=== PATIENT | male | born 1950 | race Caucasian/White ===

== ENCOUNTER 2016-09-29 20:32 | Emergency (ER) | payer MEDICARE, OTHER ==
[~2016-09-29] VITALS: Ht 175.3 cm; Wt 98.4 kg
[2016-09-29] MEDS ORDERED: ALBUTEROL-200 PUFFS/ IH (20:39)
[2016-09-29] MEDS ORDERED: SERTRALINE 50MG50 MG PO (20:39)
[2016-09-29] MEDS ORDERED: OMEPRAZOLE20 MG PO (20:39)
[2016-09-29] MEDS ORDERED: SYMBICORT1 AE1 IH (20:40)
[2016-09-29] MEDS ORDERED: CYMBALTA30 MG PO (20:40)
--- OUTSIDE RECORDS SUMMARY | 2016-09-29 20:44 | External Medical Summary Rpt ---
Author Author [employer] Organization [employer] Address Unknown Phone Unavailable Purpose Continuity of Care Document - through 2016
--- OUTSIDE RECORDS SUMMARY | 2016-09-29 20:44 | External Medical Summary Rpt ---
Demographics Preferred Language Tamazight Marital Status Unknown Adventism Affiliation Unknown Race Unknown Ethnic Group Unknown Author Author , Organization [employer] Address Unknown Phone Unavailable Purpose Continuity of Care Document - through 2016 Immunization No patient found.
--- OUTSIDE RECORDS SUMMARY | 2016-09-29 20:44 | External Medical Summary Rpt ---
Demographics Preferred Language Divehi Marital Status Unknown Sabianism Affiliation Unknown Race Unknown Ethnic Group Unknown Author Author , Organization [employer] Address Unknown Phone Unavailable Purpose Continuity of Care Document - through 2016 Immunization No patient found.
[2016-09-29 21:01] LABS: HEMOGLOBIN 15.4 g/dL (14.1-18.0); LYMPH # 1.9 K/mm3 (0.7-4.5); LYMPH % 13.9 % (10-50)
[2016-09-29 21:16] LABS: URINE BLOOD NEGATIVE (NEG)
[2016-09-29 21:18] LABS: URINE BILIRUBIN - DIPSTICK 1+ (NEG)
[2016-09-29 21:44] LABS: BUN 25 mg/dL (7-18)
[2016-09-29 21:50] LABS: GFR (ESTIMATED) 75 ML/MIN (>60)
[2016-09-29 21:57] LABS: URINE SQUAMOUS CELLS OCC #/hpf (OCC)
--- NOTE | 2016-09-29 22:10 | Emergency Room Report ---
History of Present Illness Time Seen by [id number] Presenting Problem in Triage Pt arrived:Walked Presenting Problem:PT STATES HE HAS HAD INDIGESTION AND VOMITING ALL DAY. PT STATES THAT HE HAS CHEST PAINS WHEN HE VOMITS. 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 N Clinical Suspician of Infection? N Mental Status: 1 - Regular (Normal Baseline) Sepsis Risk:Possible Sepsis Risk Have you (or family members/close friends) recently traveled outside the [place]? N If Yes, where/when: Have you had exposure to infectious disease within the past month? TB? Other? Specify: Source patient, RN notes reviewed, old records Exam Limitations no limitations Comment upper abd pain with burning pain with no melena and has had pain for many yrs with last egd at [facility] about a year ago - Cardiac Chest Pain Chest pain indicative of cardiac No Timing/Duration this evening Severity moderate ALLERGIES Coded Allergies: Sulfa (Sulfonamide Antibiotics) (09/29/16) Home Medications Reported Medications Sertraline Hcl (Sertraline 50MG) 25 MG PO BID Omeprazole (Omeprazole 20MG) 20 MG PO BID Albuterol (Albuterol-Hfa Inhaler) 1 PUFF IH PRN PRN . BUDESONIDE/FORMOTEROL FUMARATE (Symbicort 160-4.5 Mcg Inhaler) 1 PUFF IH BID DULOXETINE HCL (Cymbalta 30MG) 30 MG PO DAILY History Medical History General CAD? No Angina: No MS: No Hypertension? No Hyperlipidemia? No CHF? No DVT? No PE? No COPD? Yes Asthma? Yes Anemia? No GERD? Yes Gastric ulcers? No GI Bleed? No Hernia? No Thyroid Problems? No Hypothyroidism? No CVA? No Seizures? No Diabetes? No Renal Insuffiency? No End Stage Renal Disease? No UTI? No Stones? No BPH? No GB Disease: No Nephritic Syndrome? No Asplenia? No Hepatitis? No Sickle Cell Disease? No Arthritis? No Migraines? No Cataracts? No Glaucoma? No MRSA? No HIV? No TB? No Anxiety? Yes Depression? Yes Cancer? No More? No Immunization Hx DT/Tetanus Unknown Surgical Hx Previous Surgery?Y LUNG SURGERY Social History Smoking Hx Smoker: Current Every Day Smoker Tobacco: Yes Type Cigarettes Alcohol Alcohol: No Drugs none Review of Systems All Other Systems Reviewed and Negative Constitutional denies fever Eyes denies drainage ENT denies: ear discharge, epistaxis, throat pain. Respiratory denies cough, denies shortness of breath, denies wheezing Cardiovascular denies chest pain, denies syncope Gastrointestinal see HPI, abdominal pain, denies diarrhea, nausea, denies vomiting Genitourinary denies: dysuria, frequency, hesitancy, hematuria. Musculoskeletal denies back pain, denies joint pain, denies joint swelling, denies neck pain Skin denies rash Psychiatric/Neurological denies headache, denies seizure Physical Exam Vital Signs Vital Signs Date Time Temp Pulse Resp B/P Pulse O2 O2 Flow FiO2 Ox Delivery Rate 09/29 2226 86 20 146/90 96 3 09/29 2144 82 20 131/76 96 3 09/29 2034 98.0 96 20 144/88 95 3 - WBC >12,000 or <4,000 or 10% bands? 2 or more SIRS Criteria Met? B/P:146/90 MAP:106 Creatinine >2.0? UA output<0.5ml/kg/hr for 2 hrs? Platelet count >100,000? Lactate >2.0mmol/1? INR >1.2 or PTT > than 60 sec? Evidence of Organ Dysfunction? Provider documented clinical suspician of infection? N Sepsis Criteria Count: 2 Sepsis Risk: Possible Sepsis Risk General Appearance no apparent distress Eye Exam - bilateral eye PERRL, bilateral eye EOMI Ear, Nose, Throat normal ENT inspection Neck supple Respiratory Status No: respiratory distress. Lung Sounds bilateral: lungs clear. 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 No Results/Orders Laboratory Tests 09/29/161: Sodium 143, Potassium 3.7, Chloride 107, Carbon Dioxide 28, BUN 25 H, Creatinine 1.0, Estimated Creat Clear 100, Estimated GFR (MDRD) 75, Glucose 89, Calcium 8.5, Total Bilirubin 0.6, AST 15, ALT 21, Alkaline Phosphatase 81, Creatine Kinase 43, CK-MB (CK-2) Rel Index 1.9, CK and CKMB Interp 0.8, Troponin I < 0.02, Total Protein 7.1, Albumin 3.4, Globulin 3.7 H, Albumin/Globulin Ratio 0.9 L, Amylase 35, Lipase 74 09/29/162104: Urine Color YELLOW, Urine Appearance CLEAR, Urine pH 6.0, Ur Specific Inlet 1.025, Urine Protein TRACE H, Urine Ketones 2+ H, Urine Blood NEGATIVE, Urine Nitrate NEGATIVE, Urine Bilirubin 1+ H, Urine Urobilinogen 1.0, Ur Leukocyte Esterase NEGATIVE, Urine RBC 3-5, Urine WBC OCC, Ur Squamous Epith Cells OCC, Urine Bacteria 1+, Fine Granular Casts OCC, Urine Mucus 2+, Urine Glucose NEGATIVE 09/29/162042: WBC 13.7 H, RBC 5.63, Hgb 15.4, Hct 47.1, MCV 83.7, RDW 13.4, Plt Count 263, MPV 8.2, Gran % 74.7, Gran # 10.2 H, Lymphocytes % 13.9, Monocytes % 5.4, Eosinophils % 5.1, Basophils % 0.8, Lymphocytes # 1.9, Monocytes # 0.7, Eosinophils # 0.7 H, Basophils # 0.1, PUBS MCHC 32.8, MCH 27.4 Current Medication Orders Sig/Mike Start time Last Medication Dose Route Stop Time Status Admin Famotidine 0 .STK-MED ONE 09/29 2216 DC IV Metoclopramide HCl 0 .STK-MED ONE 09/29 2216 DC .ROUTE Famotidine 20 MG ONCE ONE 09/29 IV 09/29 Metoclopramide HCl 10 MG ONCE ONE 09/29 IVP 09/29 Sodium Chloride 8 ML ONCE ONE 09/29 IV 09/29 Ondansetron HCl 4 MG ONCE 09/29 IV 09/29 Sodium Chloride 10 ML PRN PRN 09/29 2044 AC IV 09/30 2040 Sodium Chloride 1,000 ML .Q1H1M 09/29 2044 DC 09/29 IV 09/29 Sodium Chloride 10 ML PRN PRN 09/29 2044 AC IV 09/30 2040 Multi-Ingredient GI 0 .STK-MED ONE 09/30 2043 DC Drug PO Sodium Chloride 1,000 ML .STK-MED ONE 09/30 2043 DC IV Ondansetron HCl 0 .STK-MED ONE 09/29 2042 DC .ROUTE Orders Procedure Date/time Status CHEST(2 VIEWS-NOT PORTABLE) 09/[address] ABD & PELVIS W/O CONTRAST 09/30 2043 Active ELECTROCARDIOGRAM REQUEST 09/[address] ABD/PELVIS REQ 09/29 2041 Complete IV SALINE LOCK 09/29 2041 Active URINALYSIS/COMPLETE 09/29 2041 Complete LIPASE 09/29 2041 Complete COMPLETE METABOLIC PANEL 09/29 2041 Complete CBC WITH AUTO DIFF 09/29 2041 Complete CARDIAC ENZYMES 09/29 2041 Complete AMYLASE 09/29 2041 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 ST/[facility] chgs XRAY/CT/US XRAY/CT/US 1 XRAY chest XR interpretation by reviewed by me Xray Results abnormal XRAY/CT/US 2 CT abdomen, pelvis CT interpretation by discussed w/radiologist Time results known: 2301 CT Results abnormal (see report) Progress ED Progress Notes Date 09/29/16 Time 2302 Comment improved after reglan Departure Departure Time of Disposition 2255 Disposition DC Home or Self Care(routine) Clinical Impression Primary Impression: Esophagitis Condition STABLE Referrals NO REFERRAL (Family) Patient Instructions DI for Esophagitis Additional Instructions see pcp for meds and more tests Discharge Counseling Counseled pt/family regarding diagnosis, test results, medications/RX, follow up needs ED Critical Care Critical Care No at 2303
[2016-09-29 23:09] VITALS: BP 134/80
--- NOTE | 2016-09-30 04:46 | RADIOLOGY REPORT PS360 ---
CHEST(2 VIEWS-NOT PORTABLE) HISTORY: Chest pain CP ORDERING PHYSICIAN: Shawna Ac MD PATIENT AGE: 66 years COMPARISON: None available FINDINGS: The heart size is unremarkable. There is prominence of the interstitium with scattered areas of lucency consistent with COPD/emphysema with interstitial fibrosis. Superimposed infiltrate could be present however, there are no prior studies available to compare. There is asymmetric right apical pleural thickening along with pleural thickening in the right lung base laterally. No acute bony anomalies are evident. The left hilum is prominent. There is 18 mm vague opacity in the right midlung. IMPRESSION: Abnormal chest x-ray as described above likely reflecting a combination of emphysema/COPD with pulmonary fibrosis. Cannot exclude underlying acute parenchymal pathology such as pneumonia or even neoplasm. Correlation with old studies needed. If no old films are available for comparison then, chest CT follow-up may provide better evaluation.
--- NOTE | 2016-09-30 10:00 | RADIOLOGY REPORT PS360 ---
CT ABD PELVIS W/O CONTRAST CLINICAL INDICATION: Nausea and vomiting NAUSEA ORDERING PHYSICIAN: Shawna Ac MD PATIENT AGE: 66 years COMPARISON: None TECHNIQUE: Axial images obtained with sagittal and coronal reformats. PROCEDURE: Oral Contrast: None IV Contrast: None . FINDINGS: Lower thorax: Bullous is edematous changes with pulmonary fibrosis. Pleural thickening with mild pleural calcification posteriorly on the right. Coronary artery calcification. Mild gynecomastia. Small hiatal hernia with mild thickening of the distal esophagus Abdomen/pelvis: Mild diffuse hepatic steatosis. Gallbladder slightly distended. No radio opaque gallstones or biliary dilatation. The spleen, adrenal glands, and pancreas are unremarkable. No renal calculi or hydronephrosis. Unremarkable appendix. No evidence of intestinal obstruction, diverticulitis, or free air. Urinary bladder is nondistended. No acute bony anomalies. IMPRESSION: 1. Small hiatal hernia with mild thickening of distal esophagus which may be seen with esophagitis/GERD. 2. Bullous emphysematous changes with pulmonary fibrosis. 3. No acute intra-abdominal pathology.
== END 2016-09-29 23:10 | disposition home or self-care (01) ==
LOC: ER 20:32
PROVIDERS: Emergency Medicine
DX: K21.0 Gastro-esophageal reflux disease with esophagitis (principal); Z72.0 Tobacco use
CPT/HCPCS: J2405